=== PATIENT | male | born 1975 | race Caucasian/White ===

== ENCOUNTER 2016-08-23 13:18 | Emergency (ER) | payer OTHER | END 2016-08-23 15:36 | disposition home or self-care (01) | LOC: ER 13:18 | DX: R23.3 Spontaneous ecchymoses (principal); F11.21 Opioid dependence, in remission; F17.210 Nicotine dependence, cigarettes, uncomplicated; Z79.899 Other long term (current) drug therapy; I10 Essential (primary) hypertension ==

== ENCOUNTER 2016-09-02 17:49 | Emergency (ER) | payer OTHER | END 2016-09-02 18:11 | disposition home or self-care (01) | LOC: ER 17:49 | DX: I10 Essential (primary) hypertension (principal); F17.210 Nicotine dependence, cigarettes, uncomplicated; Z88.1 Allergy status to other antibiotic agents; Z79.899 Other long term (current) drug therapy | CPT/HCPCS: 99282 ==